=== PATIENT | male | born 1945 | race Caucasian/White ===

== ENCOUNTER 2024-02-18 10:06 | Emergency (ER) | payer OTHER ==
[2024-02-18 10:12] VITALS: RESP 18; BMI 30.4
[2024-02-18] MEDS ORDERED: ACETAMINOPHEN INJECTION 100 ML ONE (11:59)
[2024-02-18] MEDS ORDERED: FAMOTIDINE 10 MG/ML VIAL IVPB ONE (12:00)
[2024-02-18] MEDS ORDERED: ONDANSETRON 4 MG/2 ML VIAL ONE (12:00)
[2024-02-18 12:04] LABS: BASO % 0.9 % (0-2.0); EOS % 1.8 % (0-4.5); HEMATOCRIT 41.7 % (35.4-49); HEMOGLOBIN 13.7 GM/dL (11.7-16.9); LYMPH % 22.9 % (8-40); MCH 25.9 pg (25.7-33.7); MCHC 32.8 g/dl (32.0-35.9); MEAN CELL VOLUME 79.1 fl (80-96); MEAN PLT VOLUME 7.8 fl (7.5-11.1); MONO % 8.5 % (3.8-10.2); NEUT % 65.9 % (42.8-82.8); PLATELET COUNT 159 10^3/uL (134-434); RBC 5.27 M/mm3 (4.00-5.60); RDW 14.2 % (11.9-15.9); WHITE BLOOD COUNT 8.5 K/mm3 (4.0-10.0)
[2024-02-18] MEDS: ONDANSETRON 4 MG/2 ML VIAL IVPUSH ONE (12:09)
[2024-02-18] MEDS: FAMOTIDINE 20 MG/50 ML IVPB 20 MG/50 ML MG IVPB ONE (12:09)
[2024-02-18] MEDS: ACETAMINOPHEN 1000 MG/100 ML BAG IVPB ONE (12:09)
[2024-02-18 12:10] LABS: INR 0.94 (0.83-1.09); PROTHROMBIN TIME (PATIENT) 10.8 SEC (9.7-13.0)
[2024-02-18 12:13] LABS: ACTIVATED PTT 30.8 SECONDS (25.2-36.5)
[2024-02-18 12:22] LABS: POTASSIUM 4.3 mmol/L (3.5-5.1)
[2024-02-18 12:24] LABS: BLOOD UREA NITROGEN 21.4 mg/dL (7-18); CALCIUM 9.1 mg/dL (8.5-10.1)
[2024-02-18 12:25] LABS: ALBUMIN 3.4 g/dl (3.4-5.0)
[2024-02-18 12:29] LABS: BILIRUBIN,TOTAL 0.3 mg/dL (0.2-1); TOT PROT 7.5 g/dl (6.4-8.2)
[2024-02-18 13:18] LABS: PH,URINE 5.5 (5.0-8.0); URINE APPEARANCE CLEAR; URINE BILIRUBIN NEGATIVE (NEGATIVE); URINE COLOR YELLOW; URINE GLUCOSE (UA) NEGATIVE (NEGATIVE); URINE KETONE NEGATIVE (NEGATIVE); URINE LEUK ESTERASE NEGATIVE (NEGATIVE); URINE NITRITE NEGATIVE (NEGATIVE); URINE PROTEIN TRACE (NEGATIVE); URINE UROBILINOGEN 0.2 mg/dL (0.2-1.0)
[2024-02-18] MEDS ORDERED: CIPROFLOXACIN 400 MG/D5W 400 MG/200 ML IVPB IVPB ONE (17:37)
[2024-02-18] MEDS ORDERED: AMOX TR/POT CLAV 875MG/125MG TABLETS (FP) ONE (19:01)
[2024-02-18] MEDS: AMOX TR/POT CLAV 875MG/125MG TABLETS (FP) PO ONE (19:03)
[2024-02-18 19:10] VITALS: BP 138/80; PULSE 80; TEMP 97.7
[2024-02-18 21:46] LABS: HIV INTERPRETATION NEGATIVE (NEGATIVE)
== END 2024-02-18 19:12 | disposition home or self-care (01) ==
LOC: JER 10:06
PROC: 3E033GC Introduction of Other Therapeutic Substance into Peripheral Vein, Percutaneous Approach (ICD-10-PCS; principal; 2024-02-18)
PROC: 3E033NZ Introduction of Analgesics, Hypnotics, Sedatives into Peripheral Vein, Percutaneous Approach (ICD-10-PCS; 2024-02-18)
PROC: 3E033GC Introduction of Other Therapeutic Substance into Peripheral Vein, Percutaneous Approach (ICD-10-PCS; 2024-02-18)
DX: K57.32 Diverticulitis of large intestine without perforation or abscess without bleeding (principal); H66.91 Otitis media, unspecified, right ear; R10.32 Left lower quadrant pain; R11.2 Nausea with vomiting, unspecified; R19.7 Diarrhea, unspecified; H92.01 Otalgia, right ear
CPT/HCPCS: 36415; 71045-TC-FY; 74177-TC; 80053; 81003; 83605; 84484; 85025; 85610; 85730; 86803; 87086; 87389; 93005; 93010; 96365; 96375; 99285-25; J0131; Q9967